=== PATIENT | male | born 1990 | race African-American/Black ===

== ENCOUNTER 2017-06-30 20:14 | Emergency (ER) | payer OTHER ==
[2017-06-30 20:29] VITALS: BP 133/77; PULSE 72; TEMP 99; BMI 21.4
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
== END 2017-07-01 01:25 | disposition home or self-care (01) ==
LOC: JERFT 20:14 → JER 20:14
DX: S20.211A Contusion of right front wall of thorax, initial encounter (principal); V43.52XA Car driver injured in collision with other type car in traffic accident, initial encounter; Y92.488 Other paved roadways as the place of occurrence of the external cause; Y93.89 Activity, other specified; Y99.8 Other external cause status
CPT/HCPCS: 71046-TC-FY; 71101-TC-RT-FY; 99281-25

== ENCOUNTER 2018-12-04 23:23 | Emergency (ER) | payer OTHER ==
[2018-12-04 23:30] VITALS: BMI 26.6
[2018-12-04] MEDS ORDERED: ACETAMINOPHEN 325 MG TABLET (FP) PO ONE (23:49)
[2018-12-05] MEDS ORDERED: ACETAMINOPHEN 325 MG TABLET (FP) ONE (00:01)
--- NOTE | 2018-12-05 00:02 | PDOC ---
History of Present Illness - General History Source: Patient Exam Limitations: Clinical Condition - History of Present Illness Initial Comments: 12/05/18 00:01 Patient with no significant past medical history presented with complaint of 3- day history of cough with yellow sputum, nasal congestion, runny nose, fever, chills, body aches and 2 episodes of vomiting this morning. Patient reports taking Motrin this morning for fever and has not taken any other medication. Denies recent travel or sick contact. Patient also reports a headache for 3 days. Denies dizziness, blurry vision, change in vision, abdominal pain, diarrhea, constipation, shortness of breath, chest pain. Denies any other symptoms Is this a multiple visit Asthma Patient?: No Timing/Duration: reports: other (3 days) Possible Cause: Yes: no prior episodes Modifying Factors: worse with: coughing Associated Symptoms: reports: cough, facial pain, fever/chills, headache, muscle aches, nasal congestion, sore throat. denies: chest pain/soreness, dizziness, earache, lightheadedness, shortness of breath, wheezing <Cesar Jose - Last Filed: 12/05/18 00:46> <Anshul Vanessa - Last Filed: 12/06/18 13:49> - General Chief Complaint: Cold Symptoms Stated Complaint: SORE THROAT/VOMITTING Time Seen by Provider: 12/04/18 23:37 Past History - Past Medical History Cardiac Disorders: No CVA: No COPD: No - Psycho Social/Smoking Cessation Hx Smoking History: Never smoked <Cesar Jose - Last Filed: 12/05/18 00:46> <Anshul Vanessa - Last Filed: 12/06/18 13:49> - Past Medical History Allergies/Adverse Reactions: Allergies Allergy/AdvReac Type Severity Reaction Status Date / Time No Known Allergies Allergy Verified 06/30/17 20:29 Home Medications: Ambulatory Orders Ibuprofen [Motrin] 600 mg PO TID #30 tablet 07/01/17 Methocarbamol [Robaxin -] 500 mg PO TID #30 tablet 07/01/17 Azithromycin [Zithromax Tri-Hai (3 DAYS) -] 500 mg PO DAILY #3 tablet 12/05/18 Benzonatate [Tessalon Pearls -] 100 mg PO TID PRN #21 capsule 12/05/18 Review of Systems - Review of Systems Able to Perform ROS?: Yes Is the patient limited Albanian proficient: No Constitutional: Yes: Chills, Fever, Malaise HEENTM: Yes: Symptoms Reported, See HPI, Nose Congestion, Throat Pain. No: Eye Pain, Blurred Vision, Tearing, Recent change in vision, Double Vision, Cataracts , Ear Pain, Ocular Prothesis, Ear Discharge, Nose Pain, Tinnitus, Nose Bleeding , Hearing Loss, Throat Swelling, Mouth Pain, Dental Problems, Difficulty Swallowing, Mouth Swelling, Other Respiratory: Yes: Symptoms reported, See HPI, Cough. No: Orthopnea, Shortness of Breath, SOB with Exertion, SOB at Rest, Stridor, Wheezing, Productive cough, Hemoptysis, Other Cardiac (ROS): No: Symptoms Reported, See HPI, Chest Pain, Edema, Irregular Heart Rate, Lightheadedness, Palpitations, Syncope, Chest Tightness, Other ABD/GI: Yes: Symptoms Reported, See HPI, Nausea, Vomiting (2 episodes of vomiting). No: Abd. Pain w/ defecation, Blood Streaked Bowels, Constipated, Diarrhea, Difficulty Swallowing, Poor Appetite, Rectal Bleeding, Indigestion, Abdominal cramping : No: Symptoms Reported, Burning, Frequency, Pain, Urgency Musculoskeletal: No: Symptoms Reported, Joint Stiffness Integumentary: No: Symptoms Reported, Rash Neurological: Yes: Headache. No: Numbness, Paresthesia, Weakness, Dizziness All Other Systems: Reviewed and Negative <Cesar Jose - Last Filed: 12/05/18 00:46> *Physical Exam - Vital Signs Last Vital Signs Temp Pulse Resp BP Pulse Ox 102.5 F H 111 H 20 130/77 98 12/04/18 23:27 12/04/18 23:27 12/04/18 23:27 12/04/18 23:27 12/04/18 23:27 - Physical Exam Comments: 12/04/18 23:59 GENERAL: Well developed, well nourished. Awake and alert. No acute distress. HEENT: Moderate pharyngeal erythema. Normocephalic, atraumatic. PERRLA, EOMI. No conjunctival pallor. Sclera are non-icteric. Moist mucous membranes. . NECK: Supple. Full ROM. CARDIOVASCULAR: Regular rate and rhythm. No murmurs, rubs, or gallops. Distal pulses are 2+ and symmetric. PULMONARY: No evidence of respiratory distress. Lungs clear to auscultation bilaterally. No wheezing, rales or rhonchi. ABDOMINAL: Soft. Non-tender. Non-distended. No rebound or guarding. No organomegaly. Normoactive bowel sounds. MUSCULOSKELETAL Normal range of motion at all joints. SKIN: Warm and dry. Normal capillary refill. No rashes. NEUROLOGICAL: Alert, awake, appropriate. Gait is normal without ataxia. PSYCHIATRIC: Cooperative. Good eye contact. Appropriate mood General Appearance: Yes: Nourished, Appropriately Dressed. No: Apparent Distress <RebecaCesar - Last Filed: 12/05/18 00:46> - Vital Signs Last Vital Signs Temp Pulse Resp BP Pulse Ox 99.7 F H 94 H 18 120/63 98 12/05/18 02:03 12/05/18 02:03 12/05/18 02:03 12/05/18 02:03 12/05/18 02:03 <Anshul Vanessa - Last Filed: 12/06/18 13:49> ED Treatment Course - RADIOLOGY Radiology Studies Ordered: Category Date Time Status CHEST PA & LAT [RAD] Stat Radiology 12/04/18 23:49 Ordered <Cesar Jose - Last Filed: 12/05/18 00:46> - ADDITIONAL ORDERS Additional order review: 12/05/18 00:03 Throat Culture - Final Throat NO BETA HEMOLYTIC STREPTOCOCCI ISOLATED - Medications Given in the ED: ED Medications Discontinued Medications Generic Name Dose Route Start Last Admin Trade Name Freq PRN Reason Stop Dose Admin Acetaminophen 975 mg 12/04/18 23:49 12/05/18 00:09 Tylenol - PO 12/04/18 23:50 975 mg ONCE ONE Administration Ibuprofen 800 mg 12/05/18 01:08 12/05/18 01:29 Motrin - PO 12/05/18 01:09 800 mg ONCE ONE Administration <Anshul Vanessa - Last Filed: 12/06/18 13:49> Medical Decision Making - Medical Decision Making 12/05/18 00:02 Patient with no significant past medical history presented with complaint of 3- day history of cough with yellow sputum, nasal congestion, runny nose, fever, chills, body aches and 2 episodes of vomiting this morning. Patient reports taking Motrin this morning for fever and has not taken any other medication. Denies recent travel or sick contact. Patient also reports a headache for 3 days. Denies dizziness, blurry vision, change in vision, abdominal pain, diarrhea, constipation, shortness of breath, chest pain. Denies any other symptoms Exam significant for fever of 102 F and moderate pharyngeal erythema otherwise normal exam. Lungs clear to auscultation bilateral and normal cardiac exam. Symptoms likely viral syndrome versus strep pharyngitis versus less likely pneumonia. Rapid flu and rapid strep test ordered. Chest x-ray ordered to rule out pneumonia 12/05/18 00:46 Chest x-ray shows no acute infiltrate. Rapid flu and rapid strep test negative. Given patient's symptoms of productive cough, sore throat and pharyngeal erythema, patient will be discharged home on azithromycin antibiotics to cover possible strep and bronchitis pending throat culture result. Rx for Tessalon Perles update as needed for cough. Patient advised to increase fluid intake and follow-up with PCP in 2 to 3 days for reassessment <Cesar Jose - Last Filed: 12/05/18 00:46> - Medical Decision Making 12/06/18 13:48 I reviewed the case of the mid-level practitioner and was available for consultation while in the emergency department <Anshul Vanessa - Last Filed: 12/06/18 13:49> Discharge - Discharge Information Problems reviewed: Yes - Admission No <Cesar Jose - Last Filed: 12/05/18 00:46> <Anshul Vanessa - Last Filed: 12/06/18 13:49> - Discharge Information Clinical Impression/Diagnosis: Malaise Pharyngitis Qualifiers: Pharyngitis/tonsillitis etiology: unspecified etiology Qualified Code(s): J02.9 - Acute pharyngitis, unspecified Fever Qualifiers: Fever type: unspecified Qualified Code(s): R50.9 - Fever, unspecified URI (upper respiratory infection) Qualifiers: URI type: unspecified URI Qualified Code(s): J06.9 - Acute upper respiratory infection, unspecified Condition: Stable Disposition: HOME - Additional Discharge Information Prescriptions: Azithromycin [Zithromax Tri-Hai (3 DAYS) -] 500 mg PO DAILY #3 tablet Benzonatate [Tessalon Pearls -] 100 mg PO TID PRN #21 capsule PRN Reason: Cough - Patient Discharge Instructions Patient Printed Discharge Instructions: DI for Pharyngitis/Tonsillopharyngitis -- Adult Additional Instructions: Your flu and strep test was negative. You will be contacted with throat culture results. Your chest x-ray shows no pneumonia. Take prescribed medication as prescribed. Increase fluid intake. Alternate between Tylenol and Motrin as needed for fever. Follow-up with your primary care in 2 to 3 days for follow-up
[2018-12-05] MEDS ORDERED: IBUPROFEN 400 MG TABLET (FP) PO ONE ×2 (01:08→01:26)
[2018-12-05 02:04] VITALS: BP 120/63; PULSE 94; TEMP 99.7
== END 2018-12-05 02:05 | disposition home or self-care (01) ==
LOC: JER 23:23
DX: J02.9 Acute pharyngitis, unspecified (principal); J06.9 Acute upper respiratory infection, unspecified; R53.81 Other malaise
CPT/HCPCS: 71046-TC-FY; 87070; 87804; 87880; 99282-25

== ENCOUNTER 2019-02-25 04:45 | Emergency (ER) | payer OTHER ==
[2019-02-25 05:21] VITALS: BP 127/85; PULSE 68; TEMP 98.2; BMI 20.9
[2019-02-25] MEDS ORDERED: IBUPROFEN 600 MG TABLET (FP) PO ONE ×2 (05:36→05:38)
--- NOTE | 2019-02-25 05:43 | PDOC ---
History of Present Illness - General Chief Complaint: Sore Throat Stated Complaint: BURNING THROAT,RUNNING NOSE - History of Present Illness Initial Comments: Tyrel Jeffers is an otherwise healthy 28yo man who presents with headache last night, now with scratchy throat and runny nose. He says that his toddler son was diagnosed with influenza 3 days ago. Mr Jeffers was well prior to last night. He took 2 Tylenol with resolution of his headache, but he noted the runny nose and sore throat when he woke up this morning. He requests to be "tested for everything." Past History - Past Medical History Allergies/Adverse Reactions: Allergies Allergy/AdvReac Type Severity Reaction Status Date / Time No Known Allergies Allergy Verified 02/25/19 05:17 Home Medications: Ambulatory Orders Ibuprofen [Motrin] 600 mg PO TID #30 tablet 07/01/17 Methocarbamol [Robaxin -] 500 mg PO TID #30 tablet 07/01/17 Azithromycin [Zithromax Tri-Hai (3 DAYS) -] 500 mg PO DAILY #3 tablet 12/05/18 Benzonatate [Tessalon Pearls -] 100 mg PO TID PRN #21 capsule 12/05/18 Cardiac Disorders: No CVA: No COPD: No - Psycho Social/Smoking Cessation Hx Smoking History: Never smoked Hx Alcohol Use: No Drug/Substance Use Hx: No Review of Systems - Review of Systems Comments:: General: No fevers, no chills, no weight or appetite change, no malaise HEENT: No changes in vision, no changes in hearing, no congestion, + sore throat , +rhinorrhea CV: No chest pain, no palpitations, no LE edema Pulm: No SOB, no cough, no wheezing GI: No nausea or vomiting, no change in bowel habits, no melena : No frequency, no urgency, no dysuria Musc: No back pain, no joint swelling, no recent injury Skin: No rash, no lesions, no erythema Endo: No excessive thirst, no heat/cold intolerance Heme: No unusual bruising or bleeding, no swollen glands Neuro: No syncope, no numbness/tingling, no focal weakness Vasc: No claudication Psych: No recent change in mood, no SI or HI *Physical Exam - Vital Signs Last Vital Signs Temp Pulse Resp BP Pulse Ox 98.2 F 68 18 127/85 98 02/25/19 04:45 02/25/19 04:45 02/25/19 04:45 02/25/19 04:45 02/25/19 04:45 - Physical Exam General: Comfortable, no acute distress HEENT: PERRL, EOMI, MMM, voice normal, normal neck ROM. Very poor view of pharynx and tonsils but no erythema or exudates appreciated Cards: RRR, no murmur appreciated Pulm: Comfortable on room air, clear to auscultation bilaterally Abd: Soft, nontender, nondistended Ext: Atraumatic. No LE edema. WWP Skin: Normal color, no rashes or lesions Neuro: A&Ox3, CN grossly intact, normal speech, motor/sensory grossly intact and symmetric Psych: Mood appropriate to situation Medical Decision Making - Medical Decision Making 02/25/19 05:36 Tyrel Jeffers is an otherwise healthy 28yo man who presents with headache last night, now with scratchy throat and runny nose. He says that his toddler son was diagnosed with influenza 3 days ago. - Discussed with patient that he likely has influenza given that his son was just diagnosed, but he would not qualify for treatment. After discussion, pt agrees to be treated symptomatically - Will give detailed instructions for home care. Discussed with Dr David Garcia PGY2 Discharge - Discharge Information Problems reviewed: Yes Clinical Impression/Diagnosis: URI (upper respiratory infection) Qualifiers: URI type: unspecified URI Qualified Code(s): J06.9 - Acute upper respiratory infection, unspecified Condition: Stable Disposition: HOME - Admission No - Follow up/Referral Referrals: Yousif Parada MD [Primary Care Provider] - - Patient Discharge Instructions Patient Printed Discharge Instructions: DI for Viral Upper Respiratory Infection -- Adult Additional Instructions: Discharge Instructions: You were seen in the emergency department for sore thoat and runny nose. These symptoms may be due to influenza as your child was recently diagnosed, but you should feel better within a week without any additional treatment. Home Care and Follow Up: - Make sure you are drinking plenty of fluids while you are sick. Increase your normal fluid intake. It is OK if you do not feel like eating as long as you are staying well hydrated - You may use medications such as acetaminophen (Tylenol) 650-1000mg or ibuprofen (Advil, Motrin) 400-600mg every 6 hours as needed for pain or fever over 101F - Consider placing a humidifier in your room overnight to help relieve congestion and reduce drying of your nose and mouth. - Use throat lozenges (cough drops) for sore throat or cough - If you use additional cold medications, make sure they do not contain medicines you are already taking such as acetaminophen or ibuprofen - You should feel better within a week, though cough can sometimes last longer. If you are not feeling better in a week, follow up with your primary doctor. - Seek immediate care if you have worsening symptoms, you are unable to stay hydrated, you develop high fevers over 104F that do not come down with medication, or you have any other medical emergency. - Post Discharge Activity Work/Back to School Note: Back to Work
--- NOTE | 2019-02-25 06:02 | PDOC ---
Attending Attestation - Resident Resident Name: Negrita Garcia - ED Attending Attestation I have performed the following: I have examined & evaluated the patient, The case was reviewed & discussed with the resident, I agree w/resident's findings & plan, Exceptions are as noted - HPI HPI: 02/25/19 06:51 See resident HPI - Physicial Exam PE: 02/25/19 06:52 Agree with documented exam - Medical Decision Making 02/25/19 06:52 28M with "scratchy" throat, coryza, +flu contact at home vitally stable symptomatic tx improved dc
== END 2019-02-25 05:52 | disposition home or self-care (01) ==
LOC: JER 04:45
DX: J06.9 Acute upper respiratory infection, unspecified (principal)
CPT/HCPCS: 99281-25